=== PATIENT | female | born 2000 | race Two or more races ===

== ENCOUNTER 2020-03-10 20:15 | Emergency (ER) | payer BC, OTHER ==
[2020-03-10] MEDS ORDERED: Ibuprofen 800 MG TAB ONE (20:37)
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
== END 2020-03-10 21:20 | disposition home or self-care (01) ==
LOC: ERS 20:15
DX: S40.022A Contusion of left upper arm, initial encounter (principal); I10 Essential (primary) hypertension; Z79.899 Other long term (current) drug therapy; V49.9XXA Car occupant (driver) (passenger) injured in unspecified traffic accident, initial encounter

== ENCOUNTER 2020-04-27 09:10 | Emergency (ER) | payer OTHER ==
[2020-04-28 12:02] LABS: SARS-CoV-2 MS2 Positive; SARS-CoV-2 N Gene Negative; SARS-CoV-2 S Gene Negative; SARS-CoV-2 orf1ab Negative
== END 2020-04-27 09:40 | disposition home or self-care (01) ==
LOC: ERS 09:10
DX: J02.9 Acute pharyngitis, unspecified (principal); R05 Cough; Z20.828 Contact with and (suspected) exposure to other viral communicable diseases; I10 Essential (primary) hypertension; Z79.899 Other long term (current) drug therapy
CPT/HCPCS: 87635; 99283; U0003